=== PATIENT | female | born 1965 | race Caucasian/White ===

== ENCOUNTER 2019-09-30 14:20 | Emergency (ER) | payer SELFPAY ==
[~2019-09-30] VITALS: Ht 142.2 cm; Wt 59.0 kg
--- NOTE | 2019-09-30 14:27 | NUR ---
Patient discharged to home in stable conditon. Written and verbal after care instructions given. Patient verbalizes understanding of instructions.
== END 2019-09-30 14:34 | disposition home or self-care (01) ==
LOC: ER 14:20
DX: S01.111D Laceration without foreign body of right eyelid and periocular area, subsequent encounter (principal); X58.XXXD Exposure to other specified factors, subsequent encounter
CPT/HCPCS: A4663

== ENCOUNTER 2024-02-01 16:48 | Emergency (ER) | payer OTHER ==
[~2024-02-01] VITALS: Ht 154.9 cm; Wt 76.2 kg
[2024-02-01] MEDS ORDERED: ACET1TAB23 PO (17:39)
[2024-02-01] MEDS ORDERED: ACETAMINOPHEN/CODEINE 300-30 MG TABLET ONE (17:46)
[2024-02-01] MEDS: ACETAMINOPHEN/CODEINE 300-30 MG TABLET PO ONE (17:50)
[2024-02-01] MEDS ORDERED: LISI20TA30 PO (17:55)
[2024-02-01] MEDS ORDERED: LOSA50TA39 PO (17:59)
[2024-02-01] MEDS: LOSARTAN POTASSIUM 50 MG TABLET PO SCH (18:00)
[2024-02-01 18:46] VITALS: BP 168/91; TEMP 97.6; O2SAT 99
== END 2024-02-01 18:40 | disposition home or self-care (01) ==
LOC: ER 16:50
DX: S16.1XXA Strain of muscle, fascia and tendon at neck level, initial encounter (principal); S20.212A Contusion of left front wall of thorax, initial encounter; M79.672 Pain in left foot; M79.671 Pain in right foot; M25.562 Pain in left knee; M25.561 Pain in right knee; E03.9 Hypothyroidism, unspecified; V89.2XXA Person injured in unspecified motor-vehicle accident, traffic, initial encounter; Y93.89 Activity, other specified; Y92.89 Other specified places as the place of occurrence of the external cause; Y99.8 Other external cause status
CPT/HCPCS: A4606; A4663